=== PATIENT | female | born 1995 | race Caucasian/White ===

== ENCOUNTER 2018-06-01 22:24 | Emergency (ER) | payer BC ==
--- NOTE | 2018-06-01 22:52 | EDPHY ---
General - History Smoking Status: Never smoked Time Seen by Provider: 06/01/18 22:36 Narrative: CHIEF COMPLAINT: Abdominal pain, UTI HISTORY OF PRESENT ILLNESS: Patient presents with complaints of abdominal pain and urinary tract infection symptoms. She states that this morning she awoke with pain in the lower abdomen that she describes as consistent with previous urinary tract infection. It is primarily right lower quadrant. It was intermittent throughout the morning. At 2:00 p.m. It suddenly became very intense pain in the right lower quadrant across the left. It also radiated to the right side of the back. This lasted 30 min and then began to improve. It was mild to moderate over 2 hr and then 45 min ago and again became very severe. It still right greater than left. There is nausea but no vomiting. No fever chills. Radiates to the back but there is no flank pain. The symptoms are different than anything she has had before. She does have history of ovarian cyst but no ovarian torsion. No previous abdominal surgeries. No pregnancies. No other associated complaints or modifying factors. REVIEW OF SYSTEMS: Ten systems reviewed and are negative unless otherwise noted in the HPI PCP: Dr. Cardenas SPECIALISTS: None PAST MEDICAL HISTORY: Umbilical hernia PAST SURGICAL HISTORY: Umbilical hernia repair remotely. SOCIAL HISTORY: Nonsmoker. Occasional alcohol. Occasional marijuana use. Lives and works here independently. FAMILY HISTORY: Noncontributory EXAMINATION General Appearance: Alert, no distress. Well-developed well-nourished. Head: normocephalic, atraumatic Eyes: Pupils equal and round, no conjunctival pallor or injection ENT, Mouth: Mucous membranes moist Neck: Normal inspection, supple, non-tender Respiratory: Lungs are clear to auscultation. No wheezing, rhonchi or crackles Cardiovascular: Regular rate and rhythm. No murmur Gastrointestinal: Abdomen is soft and nondistended. There is mild suprapubic and right lower quadrant tenderness. No CVA tenderness. No guarding. No tympany. No rigidity. Negative Rovsing. Negative obturator. Neurological: A&O, nonfocal, normal gait Skin: Warm and dry, no rash no petechiae or purpura on the exposed skin Extremities: Nontender, no pedal edema Psychiatric: Mood and affect normal DIFFERENTIAL DIAGNOSES: Including but not limited to acute appendicitis, diverticulitis, colitis, ureteral stone, renal colic, ovarian cyst, ovarian torsion, UTI, pyelonephritis MDM: 10:50 p.m. Right lower quadrant and lower abdominal pelvic pain of 1 day duration. Given location of her pain, I immediately ordered and pelvic ultrasound to rule out torsion. I have also ordered ultrasound the appendix. Laboratory studies will be obtained. Urinalysis will be obtained. She is currently declining pain medication and in no acute distress. Case discussed with Dr. Josue. 11:40 p.m. Notified by radiologist Dr. Roman. Pelvic ultrasound is unremarkable for any acute findings. No evidence of torsion. Right lower quadrant ultrasound does not visualize a normal appendix and is thus equivocal and needs to be correlated clinically. 11:[address] Josue is examining the patient. 11:[address] Josue has evaluated the patient and offered CT scan for further evaluation. The patient contemplated this for 15 min and has consented. I have ordered IV fluid due to the contrast load. She remains awake alert no acute distress. 12:15 a.m. Notified by radiologist Dr. Roman. There is a right-sided ureteral stone at the UVJ with mild hydronephrosis. No acute appendicitis. I have discussed this with the patient and updated her. She is feeling well with mild pain at this time. I have ordered 1 dose of Toradol and Flomax to help pass the stone. We discussed 1 L IV fluid here with increase fluid intake of the next 24-48 hours. We discussed straining of urine, Urology follow-up, ED precautions for pain, flank pain, vomiting or fever. She is comfortable this plan and we discharged home with Percocet prepack. Discharged in stable condition. SUPERVISION: Patient was evaluated and examined in conjunction with my secondary supervising physician as documented. We have both examined the patient. (Sam Bailon) PHYSICIAN DOCUMENTATION: The patient was evaluated and managed by the Physician Military Analyst. My co- signature indicates that I have reviewed this chart and I agree with the findings and plan of care as documented. I am the secondary supervising physician. I examined the patient and did note that she has right flank and right lower quadrant tenderness. I agreed with CT scan for further evaluation. (Yenni Josue) - Objective Vital Signs: Initial Vital Signs Temperature (C) 37.2 C 06/01/18 22:25 Heart Rate 90 06/01/18 22:25 Respiratory Rate 16 06/01/18 22:25 Blood Pressure 142/107 H 06/01/18 22:25 O2 Sat (%) 97 06/01/18 22:25 O2 Delivery Mode Room Air Allergies/Adverse Reactions: Sulfa (Sulfonamide Antibiotics) Allergy (Verified 06/01/18 22:29) Home Medications: Medication Instructions Recorded Birthcontrol 06/01/18 Flonase Nasal [facility] 06/01/18 buPROPion 06/01/18 Hydrocodone/APAP 5/325 [[place] 1 - 2 tab PO Q4H PRN #10 tab 06/02/18 5/325 (RX)] Promethazine HCl [Phenergan 25mg 25 mg PO Q6-8PRN PRN #20 tab 06/02/18 (RX)] Laboratory Results: Laboratory Results 06/01/18 22:55 06/01/18 22:55 Medications Given: Discontinued Medications Sodium Chloride (Ns) 1,000 mls @ 0 mls/hr IV EDNOW ONE; Wide Open PRN Reason: Protocol Stop: 06/02/18 00:00 Last Admin: 06/02/18 00:23 Dose: 1,000 mls Ketorolac Tromethamine (Toradol) 30 mg IVP EDNOW ONE Stop: 06/02/18 00:21 Last Admin: 06/02/18 00:32 Dose: 30 mg Oxycodone/Acetaminophen (Percocet 5/325mg Prepack#4) 1 btl TAKEHOME EDNOW ONE Stop: 06/02/18 00:22 Last Admin: 06/02/18 00:33 Dose: 1 btl Tamsulosin HCl (Flomax) 0.4 mg PO EDNOW ONE Stop: 06/02/18 00:21 Last Admin: 06/02/18 00:32 Dose: 0.4 mg Departure - Departure Disposition: Home, Routine, Self-Care Clinical Impression: Ureteral stone with hydronephrosis Condition: Good Instructions: Oxycodone/Acetaminophen (By mouth), Renal Colic (ED), Ureteral Stones (ED) Additional Instructions: 1. Increase fluid intake for the next 48 hr 2. Strain urine for the next 24-48 hours 3. Contact on-call urologist for outpatient follow-up care 4. Return here for any difficulty urinating, abdominal pain, flank pain, fever, vomiting 5. Ibuprofen 600 mg every 6-8 hours as needed for pain. Your 1st dose will be due at 7:00 a.m. Referrals: PARIS CARDENAS [Primary Care Provider] - As per Instructions Kwabena Sanchez MD [Medical Doctor] - As per Instructions Physician,Emergency DeptMD [Medical Doctor] - As per Instructions (For any fever, flank pain, persistent abdominal pain, difficulty urinating, nausea or vomiting) Stand Alone Forms: Work Excuse
[2018-06-01 23:08] LABS: PLATELET COUNT 280 10^3/uL (150-400)
[2018-06-01] MEDS ORDERED: NS 1,000 ML IV ONE (23:59)
[2018-06-02] MEDS ORDERED: IOPAMIDOL (ISOVUE-300) 100 ML BTL ONE
[2018-06-02] MEDS ORDERED: KETOROLAC 30 MG/1 ML SDV IVP ONE (00:20)
[2018-06-02] MEDS ORDERED: TAMSULOSIN HCL 0.4 MG CAP PO ONE (00:20)
[2018-06-02] MEDS ORDERED: OXYCODONE/APAP 5/325MG PREPACK#4 BTL TAKEHOME ONE (00:21)
[2018-06-02 01:22] VITALS: BP 136/88
== END 2018-06-02 01:33 | disposition home or self-care (01) ==
DX: N13.2 Hydronephrosis with renal and ureteral calculous obstruction (principal); E86.9 Volume depletion, unspecified
CPT/HCPCS: 96374; J1885; Q9967

== ENCOUNTER 2018-06-02 13:10 | Emergency (ER) | payer BC ==
[2018-06-02] MEDS ORDERED: KETOROLAC 30 MG/1 ML SDV IVP ONE (13:36)
[2018-06-02] MEDS ORDERED: NS 1,000 ML IV ONE (13:36)
[2018-06-02] MEDS ORDERED: ONDANSETRON 4 MG/2 ML VIAL IVP ONE (13:36)
--- NOTE | 2018-06-02 13:38 | EDPHY ---
H & P Stated Complaint: Right flankpain, diagnosed with stone last night. Time Seen by Provider: 06/02/18 13:31 HPI/ROS: CHIEF COMPLAINT: Right flank pain HISTORY OF PRESENT ILLNESS: Patient is a 23-year-old female who was seen last night diagnosed with a 1 mm kidney stone at her right UVJ on CT scan. She also had an unremarkable pelvic ultrasound. She felt better after receiving Toradol and Flomax and IV fluids home at home. She states that she felt well overnight but then began having pain again a couple of hours ago. She took a Percocet and about 2 hr later vomited. She has not taken any ibuprofen. She was told to come back if she threw up. She has not had a fever. She classifies her pain currently is moderate. REVIEW OF SYSTEMS: Constitutional: denies: chills, fever, recent illness, recent injury EENTM: denies: blurred vision, double vision, nose congestion Respiratory: denies: cough, shortness of breath Cardiac: denies: chest pain, irregular heart rate, lightheadedness, palpitations Gastrointestinal/Abdominal: See HPI Genitourinary: denies: dysuria, frequency, hematuria, pain Musculoskeletal: denies: joint pain, muscle pain Skin: denies: lesions, rash, jaundice, bruising Neurological: denies: headache, numbness, paresthesia, tingling, dizziness, weakness Hematologic/Lymphatic: denies: blood clots, easy bleeding, easy bruising Immunologic/allergic: denies: HIV/AIDS, transplant EXAM: GENERAL: Well-appearing, well-nourished and in no acute distress. HEAD: Atraumatic, normocephalic. EYES: Pupils equal round and reactive to light, extraocular movements intact, sclera anicteric, conjunctiva are normal. ENT: TMs normal, nares patent, oropharynx clear without exudates. Moist mucous membranes. NECK: Normal range of motion, supple without lymphadenopathy or JVD. LUNGS: Breath sounds clear to auscultation bilaterally and equal. No wheezes rales or rhonchi. HEART: Regular rate and rhythm without murmurs, rubs or gallops. ABDOMEN: Soft, nontender, normoactive bowel sounds. No guarding, no rebound. No masses appreciated. BACK: No CVA tenderness, no spinal tenderness, step-offs or deformities EXTREMITIES: Normal range of motion, no pitting or edema. No clubbing or cyanosis. NEUROLOGICAL: Cranial nerves II through XII grossly intact. Normal speech, normal gait. 5/5 strength, normal movement in all extremities, normal sensation PSYCH: Normal mood, normal affect. SKIN: Warm, dry, normal turgor, no visible rashes or lesions. Source: Patient, Family Exam Limitations: No limitations - Personal History LMP (Females 10-55): Over 28 Days Ago Current Tetanus Diphtheria and Acellular Pertussis (TDAP): Unsure - Medical/Surgical History Hx Asthma: No Hx Chronic Respiratory Disease: No Hx Diabetes: No Hx Cardiac Disease: No Hx Renal Disease: No Hx Cirrhosis: No Hx Alcoholism: No Hx HIV/AIDS: No Hx Splenectomy or Spleen Trauma: No Other PMH: hernia surgery, wisdom teeth,anemia - Family History Significant Family History: No pertinent family hx - Social History Smoking Status: Never smoked Alcohol Use: Sober Drug Use: None Constitutional: Initial Vital Signs Temperature (C) 36.6 C 06/02/18 13:15 Heart Rate 88 06/02/18 13:15 Respiratory Rate 18 06/02/18 13:15 Blood Pressure 139/83 H 06/02/18 13:15 O2 Sat (%) 98 06/02/18 13:15 O2 Delivery Mode Room Air Allergies/Adverse Reactions: Sulfa (Sulfonamide Antibiotics) Allergy (Verified 06/01/18 22:29) Home Medications: Medication Instructions Recorded Birthcontrol 06/01/18 Flonase Nasal [place] 06/01/18 buPROPion 06/01/18 Hydrocodone/APAP 5/325 [[place] 1 - 2 tab PO Q4H PRN #10 tab 06/02/18 5/325 (RX)] Promethazine HCl [Phenergan 25mg 25 mg PO Q6-8PRN PRN #20 tab 06/02/18 (RX)] Medical Decision Making Procedures: 2:30 p.m. the patient is feeling somewhat better. She is requesting Dilaudid. 3:30 p.m. the patient states that her pain is better but she still feels slightly nauseous. We will try Phenergan. 4:30 p.m. the patient is doing much better. She is ready to go home. She is requesting a prescription for Phenergan as well as Vicodin because the Percocet makes her nauseous. She declines further workup or testing. We discussed indications for returning. ED Course/Re-evaluation: Partial list of the Differential diagnosis considered include but were not limited to; kidney stone urinary tract infection, pyelonephritis and although unlikely based on the history and physical exam, I also considered ovarian cyst , ovarian torsion, appendicitis. I discussed these differential diagnoses and the plan with the patient as well as the usual and expected course. The patient understands that the diagnosis is provisional and that in medicine we are not always correct and that further workup is often warranted. Usual and customary warnings were given. All of the patient's questions were answered. The patient was instructed to return to the emergency department should the symptoms at all worsen or return, otherwise to followup with the physician as we discussed. - Data Points Medications Given: Discontinued Medications Hydromorphone HCl (Dilaudid) 1 mg IVP EDNOW ONE Stop: 06/02/18 14:36 Last Admin: 06/02/18 14:47 Dose: 1 mg Sodium Chloride (Ns) 1,000 mls @ 0 mls/hr IV EDNOW ONE; Wide Open PRN Reason: Protocol Stop: 06/02/18 13:37 Last Admin: 06/02/18 14:15 Dose: 1,000 mls Ketorolac Tromethamine (Toradol) 30 mg IVP EDNOW ONE Stop: 06/02/18 13:37 Last Admin: 06/02/18 14:15 Dose: 30 mg Ondansetron HCl (Zofran) 4 mg IVP EDNOW ONE Stop: 06/02/18 13:37 Last Admin: 06/02/18 14:15 Dose: 4 mg Promethazine HCl (Phenergan) 12.5 mg IVP EDNOW ONE Stop: 06/02/18 15:37 Last Admin: 06/02/18 15:53 Dose: 12.5 mg Departure - Departure Disposition: Home, Routine, Self-Care Clinical Impression: Kidney stone on right side Vomiting Qualifiers: Vomiting type: unspecified Vomiting Intractability: non-intractable Nausea presence: with nausea Qualified Code(s): R11.2 - Nausea with vomiting, unspecified Condition: Fair Instructions: Kidney Stones (ED), Acute Nausea and Vomiting (ED) Referrals: PARIS CARDENAS [Primary Care Provider] - As per Instructions Prescriptions: Hydrocodone/APAP 5/325 [[place] 5/325 (RX)] 1 - 2 tab PO Q4H PRN #10 tab PRN Reason: Pain, Moderate Promethazine HCl [Phenergan 25mg (RX)] 25 mg PO Q6-8PRN PRN #20 tab PRN Reason: Nausea vomiting
[2018-06-02] MEDS ORDERED: HYDROmorphONE/DILAUDID 2 MG/ML INJ IVP ONE (14:35)
[2018-06-02] MEDS ORDERED: PROMETHAZINE HCL 25 MG/ML INJ IVP ONE (15:36)
[2018-06-02 16:46] VITALS: BP 125/74
== END 2018-06-02 16:46 | disposition home or self-care (01) ==
DX: N20.0 Calculus of kidney (principal); E86.9 Volume depletion, unspecified
CPT/HCPCS: 96374; J1170; J1885; J2405; J2550